=== PATIENT | male | born 1960 | race Caucasian/White ===

== ENCOUNTER → 2018-03-05 | Outpatient (REF) | payer OTHER ==
[~2018-03-05] MED LIST: CEPH500C24 PO; HYDR-4225 PO; PRED20TA6 PO; ROS10 PO
== END ==
LOC: ZZSENDIN 17:06
PROVIDERS: ATTEND Family Medicine
DX: Z02.1 Encounter for pre-employment examination (principal)
CPT/HCPCS: 81001

== ENCOUNTER → 2018-03-05 | Outpatient (CLI) | payer OTHER ==
--- NOTE | 2018-03-05 12:37 | RADIOLOGY IMAGING REPORT ---
FACILITY: [facility] PATIENT NAME: Cesar Saleh : 1960 MR: [id number] V: [id number] EXAM DATE: ORDERING PHYSICIAN: SUJATHA KIM TECHNOLOGIST: Location: [facility] - [place] Patient: Cesar Saleh : 1960 Visit/Account:[id number] Date of Sevice: 03/05/2018 Study: Single portable view of the chest. Indication: Preemployment screening Comparison study: None. Technique: Single AP view of the chest demonstrates no evidence of acute infiltrate. There is no evid ence of pleural effusion or pneumothorax. The mediastinal, cardiac, and diaphragmatic contours are un remarkable. IMPRESSION: Unremarkable chest. Report Dictated By: Primo Forbes at 03/05/2018 12:32 PM Report E-Signed By: Primo Forbes at 03/05/2018 12:33 PM [id number]
== END ==
LOC: RAD 12:10
PROVIDERS: ATTEND Family Medicine
DX: Z02.1 Encounter for pre-employment examination (principal)
CPT/HCPCS: 71045